=== PATIENT | male | born 1980 | race African-American/Black ===

== ENCOUNTER 2016-07-18 05:11 | Emergency (ER) | payer OTHER ==
[2016-07-18 05:17] VITALS: BP 126/80; BMI 19.2
[2016-07-18] MEDS ORDERED: TORADOL 60 MG VIAL IM ONE (05:49)
[2016-07-18] MEDS ORDERED: TORADOL 60 MG VIAL ONE (05:52)
--- NOTE | 2016-07-18 05:58 | DR.EXTPAIN ---
HPI - Time seen Time seen: 05:52 - PCP Primary Care Physician: NFD - Complaint/Symptoms Chief Complaint Doctor Comments: Patient complains of left leg pain for the past two months with problems lifting his left leg and turning it in certain direction. He denies any recent trauma. States he has been having left thigh, hip and knee pain. States he had biopsy x2 on the muscles of his left leg when he was a child up [place] trying t determine why his enzymes were so low. states he took Prednisone and metotrexate for a while. States he has been limping and having problems putting weight on his left leg for a while but he has just been taking it but the pain has gotten worst. States he does not have a local doctor and he has not seen a bone doctor in years. He smokes 1/4 pack cigarettes daily but denies alcohol use. States he has hypertension but is not taking any medicine because they did not give him any medicine after he left long-term. He denies any recent trauma. Chief Complaint:: LEFT LEG PAIN, DENIES INJURY OR TRAUMA. O/S 2 MONTHS BUT PAIN WORSE TONIGHT - Nurses notes reviewed Nurses Notes Review: Yes - Source History Provided: Patient - Mode of arrival Mode of Arrival: Ambulatory - Timing Onset of Chief Complaint: 07/17/16 - Context History of: None - Associated signs and symptoms Associated Signs and Symptoms: Pain PMH - PMH Past Medical History: Yes Past Medical History Comment: BLIND LEFT EYE Past Surgical History: Yes Surgical History: Ortho Surgery Past Surgical History Comment: LEFT CALF - Family History History of Family Medical Conditions: Yes Family Medical History: Hypertension - Social History Type of Tobacco Use: Cigarettes Alcohol Use: None Do you use any recreational Drugs:: No Lives With: Family Lives Where: Home - infectious screening Have you traveled outside the country in the last 6 months?: No Isolation: Standard ROS - Review of Systems Constitutional: No Symptoms Reported. negative: See HPI, Chills, Diaphoresis, Fever, Malaise, Weakness, Irritable, Fatigue, Loss of Appetite, Other Eyes: No Symptoms Reported ENTM: No Symptoms Reported Respiratoy: No Symptoms Reported Cardiovascular: No Symptoms Reported. negative: See HPI, Chest Pain, Edema, Palpitations, Syncope, Cyanosis, Skin Mottling, Other Gastrointestinal/Abdominal: No Symptoms Reported Genitourinary: No Symptoms Reported Neurological: No Symptoms Reported, Problems Walking (left leg and hip pain) Musculoskeletal: No Symptoms Reported, Left, Hip, Leg Integumentary: No Symptoms Reported Hematologic/Lymphatic: No Symptoms Reported. negative: See HPI, Anemia, Blood Clots, Easy Bleeding, Easy Bruising, Swollen Glands, Lymphadenopathy, Other Endocrine: No Symptoms Reported Psychiatric: No Symptoms Reported. negative: See HPI, Anxiety, Depression, Hallucinations, Excessive crying, Suicidal, Other PE - Vital Signs Vitals: Temperature 98.2 F Pulse Rate 62 Respiratory Rate 16 Blood Pressure [Right Arm] 172/92 Blood Pressure [Left Arm] 130/86 Blood Pressure 126/80 O2 Sat by Pulse Oximetry 100 - General Limitations: No Limitations General Appearance: Alert, In No Apparent Distress, In Distress (moderate) - Head Head Exam: Normal Inspection, Atraumatic, Normocephalic - Eyes Eye exam: Normal Appearance, PERRL, EOMI. negative: Scleral Icterus, Conjunctival Injection, Nystagmus, Miosis, Mydrasis, Periorbital Swelling, Periorbital Tenderness, Other - ENT ENT Exam: Normal Exam, Normal Oropharynx, Normal External Ear Exam, Mucous Membranes Moist, TM's Normal Bilaterally - Neck Neck Exam: Normal Inspection, Full ROM, Trachea Midline - Chest Chest Inspection: Normal Inspection, Symmetric Chest Wall Rise - Respiratory Respiratory Exam: Normal Lung Sounds Bilat Respiratory Exam: Bilateral Clear to Auscultation - Cardiovascular Cardiovascular Exam: Regular Rate, Normal Rhythm, Normal Heart Sounds - Abdominal Exam Abdominal Exam: Normal Inspection, Normal Bowel Sounds, Soft. negative: Distention, Tenderness, Guarding, Rebound, Rigidity, Dimnished Bowel Sounds, Hyperactive Bowel Sounds, Hypoactive Bowel Sounds, Organomegaly, Trauma, Incision, Ascites, Mass, Bruit, Pulsatile Mass, Hernia, Other Abdominal Tenderness: negative: RUQ, RLQ, LUQ, LLQ, Epigastrium, Suprapubic, Diffuse, Mild, Moderate, Severe, Other - Extremities Extremities Exam: Normal Inspection, Full ROM, Tenderness (left hip tender on palpation), Normal Capillary Refill (left lower leg with healed surgical scar; muscle deficit lower leg and calf muscle; well healed). negative: Edema, Joint Swelling, Calf Tenderness, Other - Upper Extremities Shoulder Exam: Normal Inspection, Full ROM Arm Exam: Normal Inspection, Full ROM. negative: Tenderness, Swelling, Abrasion , Laceration, Ecchymosis, Deformity, Crepitus, Erythema, Other Elbow Exam: Normal Inspection, Full ROM. negative: Tenderness, Swelling, Abrasion, Laceration, Ecchymosis, Deformity, Crepitus, Dislocation, Erythema, Effusion, Pain w/ pronation, Pain w/ Spuination, Tenderness over Radial Head, Other Forearm Exam: Normal Inspection, Full ROM Hand Exam: Normal Inspection, Full ROM Neuromotor Exam: Normal Exam. negative: Wrist Extension, Thumb Opposition, Thumb IP Flexion, Thumb Adduction, Fingers 2-5 Abduction, Other Neurosensory Exam: Normal Exam Hand Tendon Exam: negative: Flexor Digitorium Profundus (Location), Flexor Digitorium Superficialis (Location), Extensor Tendon (Location), Other Upper Ext. Vascular Exam: Capillary Refill - Lower Extremities Hip/Pelvis Exam: Normal Inspection, Full ROM, Tenderness (left hip tender on palpation). negative: Swelling, Abrasion, Laceration, Ecchymosis, Deformity, Crepitus, Dislocation, Erythema, External Rotation, Internal Rotation, Shortening, Pelvis Stable, Other Upper Leg Exam: Normal Inspection, Full ROM Knee Exam: Normal Inspection, Full ROM Lower Leg Exam: Normal Inspection, Full ROM, Tenderness (left popliteal with tendon tightening; no swelling or erythema) Ankle Exam: Normal Inspection, Full ROM Foot/Toe Exam: Normal Inspection, Full ROM Neurovascular/Tendon Exam: Normal Capillary Refill Gait Exam: Antalgic - Back Back Exam: Normal Inspection, Full ROM. negative: Tenderness, (R) CVA Tenderness, (L) CVA Tenderness, Muscle Spasm, Paraspinal Tenderness, Vertebral Tenderness, Rashes, (R) Sciatic Notch Tenderness, (L) Sciatic Notch Tendern, (R ) Straight Leg Raise, (L) Straight Leg Raise, Other - Neurological Neurological Exam: Alert, Oriented X3, CN II-XII Intact, Reflexes Normal. negative: Normal Gait (gait with left leg limp) - Psychiatric Psychiatric Exam: Normal Affect, Normal Mood - Skin Skin Exam: Warm, Dry, Intact, Normal Color Type of Lesion: negative: Rash, Abscess, Laceration, Foreign Body, Bite/Sting, Abrasion, Other Distribution: negative: Generalized, Involves Palms/Soles, Head, Face, Neck, Thorax, Chest, Back, Abdomen, Genitals, LUE, LLE, RUE, RLE, Other Description: negative: Size, Tenderness, Erythematous, Swelling, Macular, Papular, Vesicular, Blisters, Cofluent, Bullous, Petechial, Purpuric, Urticarial , Crusting, Discharge, Fluctuant, Indurated, Other ROR - Labs Reviewed Laboratory Results Reviewed?: Yes (All labs and x-ray results reviewed and discussed with patient.) Laboratory: D-Dimer 452 ng/mL (0-400) H* 07/18/16 06:00 - XRAY XRAY Interpreted by: Radiologist (Pelvis x-ray: Avascular necrosis right femoral head secondary osteoarthritis right hip) XRAY Findings: Left femur: Large soft tissue calcification throughout thighs soft tissue - Diagnosis Discharge Problem: Left hip pain, Avascular necrosis of bone of right hip, soft tissue calcification thighs Osteoarthritis of right hip Qualifiers: Osteoarthritis type: primary Qualified Code(s): M16.11 - Unilateral primary osteoarthritis, right hip - Discharge Plan Disposition: HOME, SELF-CARE Condition: Stable Prescriptions: Acetaminophen/Codeine Tab [TYLENOL w/CODEINE #3 (300 MG/30 MG) *] 1 tab PO Q4- 6H PRN #28 tab PRN Reason: Pain Meloxicam [MOBIC 15 MG *] 15 mg PO DAILY #30 tab Methylprednisolone Dosepak 4Mg [MEDROL DOSEPAK (4 mg tab x 21)] 1 tank PO ONCE # 1 tank - Follow ups/Referrals Follow ups/Referrals: NFD,None [Primary Care Provider] - 3 days KIANA RAE [CONSULTING PHYSICIAN] - 3 days CLAUDIA WONG [STAFF PHYSICIAN] - 3 days - Instructions Instructions: Avascular Necrosis, Hip Pain, Osteoarthritis, Joint Pain, Easy-to -Read, Myositis Ossificans-Sports[facility]
[2016-07-18] MEDS ORDERED: FLEXERIL TAB 10 MG PO STA (06:03)
[2016-07-18] MEDS ORDERED: PREDNISONE TAB 20 MG PO ONE ×2 (06:03→06:23)
[2016-07-18] MEDS ORDERED: FLEXERIL TAB 10 MG ONE (06:23)
--- NOTE | 2016-07-18 06:43 | RAD ---
EXAM: Pelvis X-ray Exam INDICATION: Pelvic Pain COMPARISION: No Prior TECHNIQUE: AP view of the pelvis, single view FINDINGS: There is avascular necrosis of the right femoral head with collapse and flattening of the superior a spect of the femoral head. Secondary osteoarthritis is present. The left hip appears unremarkable. N o acute fracture or dislocation. IMPRESSION: There is avascular necrosis of the right femoral head. Secondary osteoarthritis is present in the ri ght hip. Reported By:
--- NOTE | 2016-07-18 06:45 | RAD ---
EXAM: Left femur x-ray INDICATION: Leg pain COMPARISION: No priors for comparison TECHNIQUE: AP, lateral, and oblique, three views FINDINGS: Large soft tissue calcifications are seen throughout the thigh soft tissues. No acute fracture or di slocation. Joint spaces are preserved. IMPRESSION: Large soft tissue calcifications are seen throughout the thighs soft tissues. Findings may be second vishnu to dermatomyositis, tumoral calcinosis, myositis ossificans, or metabolic disorder. Reported By:
== END 2016-07-18 08:38 | disposition home or self-care (01) ==
LOC: ER 05:11
DX: M25.552 Pain in left hip (principal); M87.859 Other osteonecrosis, unspecified femur; M79.89 Other specified soft tissue disorders; M16.11 Unilateral primary osteoarthritis, right hip
CPT/HCPCS: 36415; 72170; 73552; 85378; 96372; 99283; J1885; J7506

== ENCOUNTER → 2016-09-08 | Outpatient (CLI) | payer OTHER ==
--- NOTE | 2016-09-08 10:47 | MRI ---
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 Comparison: Left femur radiograph July 18, 2016 Findings: There is osteonecrosis of the bilateral femoral heads. There is moderate flattening of the right superior femoral head as well as mild articular surface irregularity of the superior left fem oral head, compatible with subchondral collapse, greater on the right. There is mild secondary degen erative arthrosis of the right greater than left hips with associated superior joint space narrowing , small femoral head marginal osteophyte formation and moderate, likely reactive bilateral effusions . No discrete paralabral cysts are identified. The remaining visualized marrow signal appears normal. No acute fracture, malalignment or suspicious osseous lesion is seen. The SI joints and pubic symphysis appear well maintained. The imaged lower lumbar spine is unremarkable. There is focal hypointense signal within the left rectus femoris muscle, corresponding to soft tissu e calcification seen on the prior radiograph. The remaining visualized myotendinous structures about the bilateral hips and pelvis are unremarkable. The imaged contents of the lower abdomen and pelvis demonstrate no unexpected findings. Shotty bilateral inguinal lymph nodes are present, none patholo gically enlarged. Impression: 1. Osteonecrosis of the bilateral femoral heads with evidence of bilateral subchondral collapse, gre ater on the right. 2. Mild secondary degenerative arthrosis of the bilateral hips, greater on the right with moderate, likely reactive joint effusions. 3. Soft tissue calcification within the left rectus femoris muscle. Differentials again include hete rotopic ossification, tumoral calcinosis, dermatomyositis or metabolic disorder. Reported By:
--- NOTE | 2016-09-08 11:14 | MRI ---
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 Comparison: Pelvis radiograph July 18, 2016 Findings: There is osteonecrosis of the bilateral femoral heads. There is moderate flattening of the right superior femoral head as well as mild articular surface irregularity of the superior left femoral head, compatible with subchondral collapse, greater on the right. There is mild secondary degenerative arthrosis of the right greater than left hips with associated superior joint space narrowing, small femoral head marginal osteophyte formation and moderate, likely reactive bilateral effusions. No discrete paralabral cysts are identified. The remaining visualized marrow signal appears normal. No acute fracture, malalignment or suspicious osseous lesion is seen. The SI joints and pubic symphysis appear well maintained. The imaged lower lumbar spine is unremarkable. There are small focal areas of hypointense signal within the extensor and flexor compartments of the left thigh, corresponding to soft tissue calcifications seen on the prior radiograph. The remaining visualized myotendinous structures about the bilateral hips and pelvis are unremarkable. The imaged contents of the lower abdomen and pelvis demonstrate no unexpected findings. Shotty bilat eral inguinal lymph nodes are present, none pathologically enlarged. Impression: 1. Osteonecrosis of the bilateral femoral heads with evidence of bilateral subchondral collapse, greater on the right. 2. Mild secondary degenerative arthrosis of the bilateral hips, greater on the right with moderate, likely reactive joint effusions. 3. Soft tissue calcifications within the left thigh. Differentials again include heterotopic ossification, tumoral calcinosis, dermatomyositis or metabolic disorder. Reported By:
== END | disposition home or self-care (01) | DRG 554 ==
LOC: RAD 09:19
PROVIDERS: ATTEND Specialist
DX: M87.051 Idiopathic aseptic necrosis of right femur (principal); M87.052 Idiopathic aseptic necrosis of left femur
CPT/HCPCS: 73721

== ENCOUNTER → 2016-12-24 | Outpatient (CLI) | payer OTHER ==
[2016-12-24 14:50] LABS: BILIRUBIN,URINE NEGATIVE (NEGATIVE); BLOOD/HEMOGLOBIN,URINE NEGATIVE (NEGATIVE); GLUCOSE, URINE NEGATIVE (NEGATIVE); KETONES,URINE NEGATIVE (NEGATIVE); LEUKOCYTE ESTERASE ,URINE NEGATIVE (NEGATIVE); NITRITES,URINE NEGATIVE (NEGATIVE); PROTEIN,URINE NEGATIVE (NEGATIVE); UROBILINOGEN,URINE NORMAL (NORMAL)
[2016-12-24 14:56] LABS: BASOPHILS % (AUTO) 0.9 % (0.2-1.0); EOSINOPHILS # (AUTO) 0.2 x10^3/uL (0.0-0.2); HEMATOCRIT 41.2 % (42.0-54.0); HEMOGLOBIN 13.9 g/dL (13.5-18.0); LYMPHOCYTES # (AUTO) 2.3 X10^3/uL (1.3-2.9); MEAN CORPUSCULAR HEMOGLOBIN 29.5 pg (27.0-34.0); MEAN CORPUSCULAR HGB CONC 33.9 g/dL (33.0-35.0); MEAN CORPUSCULAR VOLUME 86.9 fL (80.0-100.0); MEAN PLATELET VOLUME 9.6 fL (7.4-11.0); MONOCYTES # (AUTO) 0.4 x10^3/uL (0.3-0.8); MONOCYTES % (AUTO) 8.9 % (0.0-13.0); NEUTROPHILS # (AUTO) 1.6 x10^3/uL (2.2-4.8); NEUTROPHILS % (AUTO) 35.2 % (42.0-75.0); PLATELET COUNT 203 X10^3/uL (150.0-450.0); RED BLOOD COUNT 4.74 X10^6/uL (4.7-6.0); RED CELL DISTRIBUTION WIDTH 16.5 % (11.6-16.5); WHITE BLOOD COUNT 4.6 X10^3/uL (3.6-10.0)
[2016-12-24 14:57] LABS: ALANINE AMINOTRANSFERASE 27 Units/L (12-78); ALBUMIN 3.8 g/dL (3.4-5.0); ALKALINE PHOSPHATASE 111 Units/L (46-116); ASPARTATE AMINO TRANSFERASE 30 Units/L (15-37); BLOOD UREA NITROGEN 14 mg/dL (7-18); CALCIUM 9.4 mg/dL (8.5-10.1); CARBON DIOXIDE 31.9 mmol/L (21-32); CHLORIDE 104 mmol/L (98-107); CREATININE 0.94 mg/dL (0.70-1.30); SODIUM 142 mmol/L (136-145); TOTAL PROTEIN 8.5 g/dL (6.4-8.2); eGFR BLACK RACES > 60 (>60); eGFR NON BLACK RACES > 60 (>60)
[2016-12-24 15:02] LABS: APPEARANCE,URINE CLEAR (CLEAR); BACTERIA,URINE NEGATIVE /HPF (NEGATIVE); COLOR,URINE YELLOW (YELLOW); RBC,URINE NONE SEEN /HPF (NEGATIVE); SQUAMOUS EPITHELIAL CELL,UR RARE /HPF (NEGATIVE)
--- NOTE | 2016-12-24 15:27 | RAD ---
Examination: Chest x-ray. Clinical History: Preop for NI. Technique: PA and lateral views of the chest were obtained. Comparison: None available. Findings: The cardiac and mediastinal contours are within normal limits. No pneumothorax or pleural effusion is noted. The lungs are mildly hyperinflated, suggestive of asthma. No confluent pulmonary opacity is noted. No acute osseous abnormality is noted. Impression: 1. The lungs are mildly hyperinflated, suggestive of asthma. No confluent pulmonary opacity is noted. Reported By:
--- NOTE | 2016-12-24 15:29 | RAD ---
Examination: AP pelvis History: Preop NI Findings: In the left hip, there is narrowing of the joint space with irregular heterogeneous scleros is of the femoral head. There is no flattening of the contour. No acute fracture is seen. In the right hip, there is a greater degree of joint narrowing with marked irregular flattening of th e sclerotic and heterogeneous femoral head. No acute traumatic injury is demonstrated. Impression: Bilateral hip osteoarthritis, right greater than left, with appearance of the femoral hea ds consistent with AVN. These findings have been documented on previous MR examination of 09/08/2016. Reported By:
[2016-12-24 15:48] LABS: ERYTHROCYTE SEDIMENTATION RATE 19 MM/HOUR (0-15)
== END ==
LOC: LAB 13:49
PROVIDERS: ATTEND Orthopaedic Surgery
DX: Z01.818 Encounter for other preprocedural examination (principal); Z01.810 Encounter for preprocedural cardiovascular examination; Z01.811 Encounter for preprocedural respiratory examination; Z79.899 Other long term (current) drug therapy; Z79.01 Long term (current) use of anticoagulants; Z11.8 Encounter for screening for other infectious and parasitic diseases; B95.61 Methicillin susceptible Staphylococcus aureus infection as the cause of diseases classified elsewhere; M87.051 Idiopathic aseptic necrosis of right femur; M87.052 Idiopathic aseptic necrosis of left femur; M16.0 Bilateral primary osteoarthritis of hip
CPT/HCPCS: 36415; 71020; 72170; 80053; 81001; 85025; 85610; 85652; 85730; 86140; 86850; 86900; 86901; 87640; 87641; 93005; 93010

== ENCOUNTER → 2017-01-01 | Outpatient (CLI) | payer OTHER | LOC: LAB 08:40 | PROVIDERS: ATTEND Orthopaedic Surgery | DX: Z01.818 Encounter for other preprocedural examination (principal); M87.071 Idiopathic aseptic necrosis of right ankle; M87.072 Idiopathic aseptic necrosis of left ankle | CPT/HCPCS: 36415; 86850; 86900; 86901 ==

== ENCOUNTER 2017-01-04 07:22 | Inpatient (IN) | payer OTHER ==
[2017-01-04] MEDS ORDERED: ANCEF VIAL 1 GM ONE (07:32)
[2017-01-04] MEDS ORDERED: D5 LR 1000 ML 1,000 ML IV ONE (07:32)
[2017-01-04] MEDS ORDERED: FENTANYL INJ 100 mcg ONE (07:38)
[2017-01-04 08:01] VITALS: BMI 19.2
[2017-01-04] MEDS ORDERED: FLUVIRIN IM ONE (08:01)
[2017-01-04] MEDS ORDERED: MARCAINE 0.25% INJ ONE (08:04)
[2017-01-04] MEDS ORDERED: NS IRRIGATION 1000 ML 1,000 ML with BACITRACIN VIAL 50,000 UNT IR ONE ×2 (09:09)
[2017-01-04] MEDS ORDERED: NS IRRIGATION 3000 ML 3,000 ML with BACITRACIN VIAL 50,000 UNT IR ONE ×4 (09:09)
[2017-01-04] MEDS: LR 1000 ML IV 1,000 ML IV ONE ×2 (09:36→10:02)
[2017-01-04 09:43] LABS: BILIRUBIN,URINE NEGATIVE (NEGATIVE); BLOOD/HEMOGLOBIN,URINE 1+ (NEGATIVE); GLUCOSE, URINE NEGATIVE (NEGATIVE); KETONES,URINE NEGATIVE (NEGATIVE); LEUKOCYTE ESTERASE ,URINE NEGATIVE (NEGATIVE); NITRITES,URINE NEGATIVE (NEGATIVE); PROTEIN,URINE 1+ (NEGATIVE); UROBILINOGEN,URINE NORMAL (NORMAL)
[2017-01-04 09:57] LABS: APPEARANCE,URINE CLEAR (CLEAR); COLOR,URINE YELLOW (YELLOW); RBC,URINE 0-3 /HPF (NEGATIVE)
[2017-01-04 09:58] LABS: BACTERIA,URINE NEGATIVE /HPF (NEGATIVE); SQUAMOUS EPITHELIAL CELL,UR FEW /HPF (NEGATIVE)
[2017-01-04] MEDS ORDERED: NS EPI PRN ×3 (10:18)
[2017-01-04] MEDS ORDERED: Q PUMP EPI PRN (10:18)
[2017-01-04] MEDS ORDERED: MARCAINE EPI PRN ×3 (10:18)
[2017-01-04] MEDS ORDERED: FENTANYL EPI PRN ×3 (10:18)
[2017-01-04] MEDS ORDERED: NEO-SYNEPHRINE INJ ONE (10:34)
[2017-01-04] MEDS ORDERED: ROBINUL ONE (10:34)
[2017-01-04] MEDS ORDERED: ZOFRAN INJ 4 MG VIAL ONE (10:34)
[2017-01-04] MEDS ORDERED: NEOSTIGMINE INJ ONE (10:34)
[2017-01-04] MEDS ORDERED: DIPRIVAN VIAL ONE (10:34)
[2017-01-04] MEDS ORDERED: SUPRANE IN ONE (10:34)
[2017-01-04] MEDS ORDERED: XYLOCAINE 2 % (PLAIN) ONE (10:34)
[2017-01-04] MEDS ORDERED: NORCURON INJ 10 MG VIAL ONE (10:34)
[2017-01-04] MEDS ORDERED: VERSED ONE (10:34)
[2017-01-04] MEDS ORDERED: MARCAINE 0.5% ONE (10:34)
[2017-01-04] MEDS ORDERED: QUELICIN (OR ANECTINE) ONE (10:34)
[2017-01-04] MEDS ORDERED: LR 1000 ML IV 1,000 ML IV ONE ×2 (10:56→12:02)
[2017-01-04] MEDS ORDERED: BACTROBAN OINT TOP ONE (11:34)
[2017-01-04] MEDS ORDERED: ZOFRAN INJ 4 MG VIAL IVP PRN ×2 (11:58→12:01)
[2017-01-04] MEDS ORDERED: DILAUDID INJ IVP PRN (12:01)
[2017-01-04] MEDS ORDERED: BENADRYL INJ 50 MG VIAL IVP PRN (12:01)
[2017-01-04] MEDS ORDERED: REGLAN INJ 10 MG VIAL IVP PRN (12:01)
[2017-01-04] MEDS ORDERED: PHENERGAN INJ 25 MG IVP PRN (12:01)
--- NOTE | 2017-01-04 12:27 | RAD ---
Examination: Left hip, two views History: Postop Comparison reference: 12/24/2016 Findings: Arthroplasty components are now present, without evidence for dislocation, periprosthetic f racture. The expected postsurgical soft tissue changes are noted. Impression: Interval performance left NI. Reported By:
[2017-01-04] MEDS ORDERED: NS 1000 ML 1,000 ML ONE (13:57)
[2017-01-04] MEDS ORDERED: NS 1000 ML 1,000 ML IV SCH (14:00)
[2017-01-04] MEDS: MORPHINE SULFATE PCA 30 MG IV PRN ×2 (14:50→23:20)
[2017-01-04] MEDS: PERCOCET TAB 5/325 MG PO PRN (22:42)
[2017-01-05] MEDS: PERCOCET TAB 5/325 MG PO PRN ×3 (05:50→21:44)
[2017-01-05 06:23] LABS: BLOOD UREA NITROGEN 7 mg/dL (7-18); CARBON DIOXIDE 26.2 mmol/L (21-32); CHLORIDE 99 mmol/L (98-107); COR NA(FOR HYPERGLY) 134 mmol/L (136-145); CREATININE 0.63 mg/dL (0.70-1.30); SODIUM 134 mmol/L (136-145); eGFR BLACK RACES > 60 (>60); eGFR NON BLACK RACES > 60 (>60)
[2017-01-05 06:35] LABS: BASOPHILS % (AUTO) 0.3 % (0.2-1.0); EOSINOPHILS % (AUTO) 0.2 % (0.9-2.9); HEMATOCRIT 31.4 % (42.0-54.0); HEMOGLOBIN 10.7 g/dL (13.5-18.0); LYMPHOCYTES # (AUTO) 1.3 X10^3/uL (1.3-2.9); MEAN CORPUSCULAR HEMOGLOBIN 29.4 pg (27.0-34.0); MEAN CORPUSCULAR HGB CONC 34.1 g/dL (33.0-35.0); MEAN CORPUSCULAR VOLUME 86.3 fL (80.0-100.0); MEAN PLATELET VOLUME 9.6 fL (7.4-11.0); MONOCYTES # (AUTO) 0.9 x10^3/uL (0.3-0.8); MONOCYTES % (AUTO) 8.9 % (0.0-13.0); NEUTROPHILS # (AUTO) 7.7 x10^3/uL (2.2-4.8); NEUTROPHILS % (AUTO) 77.6 % (42.0-75.0); PLATELET COUNT 132 X10^3/uL (150.0-450.0); RED BLOOD COUNT 3.63 X10^6/uL (4.7-6.0); RED CELL DISTRIBUTION WIDTH 15.2 % (11.6-16.5); WHITE BLOOD COUNT 9.9 X10^3/uL (3.6-10.0)
[2017-01-05] MEDS ORDERED: NORCO 10/325 TAB PO PRN (12:38)
[2017-01-05] MEDS: ANCEF VIAL 1 GM 1 GM in NS 50 ML IV + SPIKE MINIBAG* 50 ML IV SCH ×3 (15:11→22:16)
--- NOTE | 2017-01-05 16:07 | OR.GENERIC ---
Post-Op Note Generic - Post-Op Note Operative Report: PREOPERATIVE DIAGNOSIS: Left hip degenerative arthritis, AVN POSTOPERATIVE DIAGNOSIS: Left hip degenerative arthritis, AVN PROCEDURE PERFORMED: LEFT total hip arthroplasty ANESTHESIA: General. BLOOD LOSS: 300 cc. The patient was positioned with the left hip exposed on the pegboard. IMPLANT SPECIFICATION: [place] Accloade femur 3 ADM 52 mm acetabular shell cluster, 28 mm ceramic head, with 48 mm ADM insert GROSS INTRAOPERATIVE FINDINGS: Severe degenerative changes within the femoral head as well as the acetabulum. complete loss of articular cartilage. HISTORY: This is a 36-year-old male with a history of left hip degenerative osteoarthritis and AVN. Because of the increased amount of pain as well as severe effect on his activities of daily living and uncontrollable pain with narcotic medication, the patient has elected to undergo the above-named procedure. All risks as well complications were discussed with the patient including but not limited to infection, scar, dislocation, need for further surgery, risk of anesthesia, deep vein thrombosis, and implant failure. The patient understood all these risks and was willing to continue further on with the procedure. PROCEDURE:. Patient was brought to the operating room. Spinal epidural was done. he got appropriate antibiotic. Bess catheter was inserted. he was positioned with peg board in a right lateral position. An axillary roll was placed. All bony prominences were well padded. At this time, the left hip and left lower extremity was then prepped and draped in the usual sterile fashion for this procedure. At this time, a posterior approach was then performed. A curvilinear incision placed over the posterior half of trochanter was placed. Dissection carried down through the subcutaneous tissue to expose the TFL and the distal part of the incision. Incision made in the TFL and The G max fibers split along. Charnley retractor applied. Fat pad was elevated with the Ray- Sage exposing the short external rotators. Inferior and superior sutures with heavy sutures placed in the rotators and the capsule. The short rotators with capsule were taken down with cautery to expose the hip. The hip was dislocated with flexion adduction and internal rotation. An neck osteotomy was completed with an oscillating saw. The femoral head was then removed. The leg was flexed and abducted and rotated 90 to prepare the femur. A Mclaughlin retractor was used to retract the tensor fascia neeru and femoral elevator was used to elevate the femur for better exposure and at this time, we began working on the femur. A rongeur was used to lateralize over the greater trochanter. A Box osteotome was used to remove the cancellous portion of the femoral neck. A Charnley awl was then used to cannulate through the proximal femoral canal. A power reamer was then used to ream the lateral aspect of the greater trochanter in order to provide maximal lateralization and prevent varus implantation of our stem. At this time, we began broaching. We started with a size #0 and progressively worked up to a size #3 mm broach. A calcar reamer was then placed and the calcar was reamed smoothly.. The acetabulum was exposed after an anterior capsulotomy was done. Retractors were placed anteriorly posteriorly and inferiorly. A long-handle knife was used to cut through the remainder of the capsule and remove the glenoid labrum around the rim of the acetabulum. With better exposure of the acetabulum, we started reaming the acetabulum. We started with a size #40 and progressively reamed to a size #52. At the size #52 mm reamer, we obtained excellent bony bleeding with good remainder of bone stalk both anteriorly and posteriorly as well as superiorly within the acetabulum. A size 52 mm cup was then implanted with excellent approaches approximately 45 degrees of abduction and 10 to 15 degrees of anteversion dialed in. 3 screws were the placed within the superior table for better approaches securing the acetabular cup. At this time, a plastic liner was then inserted for protection. The ADM complement was assembled on the back table. The 28 mm zero neck length cobalt-chrome femoral head was then impacted in place and the Monge taper assured that this was well fixed . A standard neck as well as a 28 mm plastic head was then placed and a trial reduction was then performed. Once this was performed, the hip was taken to range of motion with external rotation, longitudinal traction as well as flexion and revealed good stability with no impingement or dislocation. At this time, we removed 2 mm broach and proceeded with implanting our polyethylene liner within the acetabulum. This was impacted and placed and checked to assure that it was well seated with no loosening. We copiously irrigated within the canal and then suctioned it dry. At this time, a size 3 porous proximal collared stem, a femoral component was then impacted in place Next, the hip was then reduced within the acetabulum and again we checked range of motion as well as ligamentous stability with gentle traction, external rotation, as well as hip flexion. We were satisfied with components as well as the alignment of the components. Copious irrigation was then used to irrigate the wound. #1 Ethibond was then used to approximate the hip capsule. #1 Ethibond in interrupted fashion was used to approximate the vastus lateralis as well as the gluteus medius attachment over the partial gluteus medius attachment which was resected off the greater trochanter. Next, a #1 Ethibond was then used to approximate the tensor fascia neeru with [id number] closure. A tight closure was performed. Since the patient did have a lot of subcutaneous fat, multiple #2-0 Vicryl sutures were then used to approximate the bed space and then #2-0 Vicryl for the subcutaneous skin. [place] were then used for skin closure. The patients hip was then cleansed. Sterile dressings consisting of Adaptic, 4 x 4, ABDs, and foam tape were then placed. After the dressing was applied, the patient was extubated safely and transferred to recovery in stable condition. Prognosis is good.
[2017-01-05] MEDS ORDERED: LOVENOX INJ 30 MG SYR SC SCH (21:00)
[2017-01-05] MEDS ORDERED: NS 50 ML IV 50 ML IV ONE (21:42)
[2017-01-05] MEDS ORDERED: ANCEF VIAL 1 GM ONE (21:43)
[2017-01-05] MEDS: BENADRYL CAP/TAB 25 MG PO PRN (23:52)
[2017-01-06] MEDS: PERCOCET TAB 5/325 MG PO PRN ×2 (03:49→09:22)
[2017-01-06] MEDS ORDERED: NS 50 ML IV 50 ML IV ONE (04:43)
[2017-01-06] MEDS ORDERED: ANCEF VIAL 1 GM ONE (04:44)
[2017-01-06 04:56] LABS: BASOPHILS # (AUTO) 0.1 X10^3/uL (0.0-0.1); BASOPHILS % (AUTO) 0.4 % (0.2-1.0); BLOOD UREA NITROGEN 8 mg/dL (7-18); CALCIUM 9.1 mg/dL (8.5-10.1); CARBON DIOXIDE 26.1 mmol/L (21-32); CHLORIDE 98 mmol/L (98-107); COR NA(FOR HYPERGLY) 134 mmol/L (136-145); EOSINOPHILS # (AUTO) 0.1 x10^3/uL (0.0-0.2); EOSINOPHILS % (AUTO) 0.7 % (0.9-2.9); HEMATOCRIT 30.8 % (42.0-54.0); HEMOGLOBIN 10.4 g/dL (13.5-18.0); LYMPHOCYTES # (AUTO) 1.2 X10^3/uL (1.3-2.9); MEAN CORPUSCULAR HEMOGLOBIN 29.1 pg (27.0-34.0); MEAN CORPUSCULAR HGB CONC 33.7 g/dL (33.0-35.0); MEAN CORPUSCULAR VOLUME 86.3 fL (80.0-100.0); MEAN PLATELET VOLUME 11.1 fL (7.4-11.0); MONOCYTES # (AUTO) 1.3 x10^3/uL (0.3-0.8); MONOCYTES % (AUTO) 8.7 % (0.0-13.0); NEUTROPHILS # (AUTO) 12.4 x10^3/uL (2.2-4.8); NEUTROPHILS % (AUTO) 82.2 % (42.0-75.0); PLATELET COUNT 148 X10^3/uL (150.0-450.0); RED BLOOD COUNT 3.56 X10^6/uL (4.7-6.0); RED CELL DISTRIBUTION WIDTH 15.1 % (11.6-16.5); SODIUM 133 mmol/L (136-145); WHITE BLOOD COUNT 15.1 X10^3/uL (3.6-10.0); eGFR BLACK RACES > 60 (>60); eGFR NON BLACK RACES > 60 (>60)
[2017-01-06] MEDS: ANCEF VIAL 1 GM 1 GM in NS 50 ML IV + SPIKE MINIBAG* 50 ML IV SCH ×2 (05:19→13:27)
--- NOTE | 2017-01-06 09:09 | PCM.PROG ---
Progress Note - Progress Note for Day of Date: 01/05/17 - Subjective Subjective: patient is a 36-year-old black male who is status post left total hip replacement per Dr. Anderson. 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 Patient is tolerating pain well. We'll continue with postoperative plan of care including physical therapy pain control - Past Medical Family Social History Past Med/Fam/Surg Hx: No changes since H&P Allergies: Allergies MS No Known Drug Allergy [No Known Drug Allergy] Allergy (Verified 07/18/16 05: 17) - Review of Systems ROS: No change since H&P - Vital Signs and I&O's Vital Signs: Temperature 99.0 F Pulse Rate [Left Radial] 100 Pulse Rate 108 Respiratory Rate 20 Blood Pressure [Right Arm] 127/74 Blood Pressure [Left Arm] 136/77 Blood Pressure 142/86 O2 Sat by Pulse Oximetry 99 Intake and Output: Intake & Output 01/03/17 01/04/17 01/05/17 01/06/17 11:59 11:59 11:59 11:59 Intake Total 1510 1590 Output Total [address] [place], [place] [phone] - Physical Exam Oriented: Normal Eyes: Normal Ear: Normal Nose: Normal Throat: Normal Respiratory: Normal Cardiovascular: Normal : Normal Auscultation: Bowel Sounds: Normal Palpation: Normal Tenderness: Normal Musculoskeletal: Left, Hip, Thigh Psychiatric: Normal Mood Description: Calm Speech Pattern: Clear, Appropriate - Laboratory and Diagnostics Result Diagrams: 01/06/17 04:00 01/06/17 04:00 Labs: Laboratory WBC 15.1 X10^3/uL (3.6-10.0) H 01/06/17 04:00 RBC 3.56 X10^6/uL (4.7-6.0) L 01/06/17 04:00 Hgb 10.4 g/dL (13.5-18.0) L 01/06/17 04:00 Hct 30.8 % (42.0-54.0) L 01/06/17 04:00 MCV 86.3 fL (80.0-100.0) 01/06/17 04:00 MCH 29.1 pg (27.0-34.0) 01/06/17 04:00 MCHC 33.7 g/dL (33.0-35.0) 01/06/17 04:00 RDW 15.1 % (11.6-16.5) 01/06/17 04:00 Plt Count 148 X10^3/uL (150.0-450.0) L 01/06/17 04:00 MPV 11.1 fL (7.4-11.0) H 01/06/17 04:00 Neut % 82.2 % (42.0-75.0) H 01/06/17 04:00 Lymph % 8.0 % (21.0-51.0) L 01/06/17 04:00 [place] % 8.7 % (0.0-13.0) 01/06/17 04:00 Eos % 0.7 % (0.9-2.9) L 01/06/17 04:00 Baso % 0.4 % (0.2-1.0) 01/06/17 04:00 Neut # 12.4 x10^3/uL (2.2-4.8) H 01/06/17 04:00 Lymph # 1.2 X10^3/uL (1.3-2.9) L 01/06/17 04:00 [place] # 1.3 x10^3/uL (0.3-0.8) H 01/06/17 04:00 Eos # 0.1 x10^3/uL (0.0-0.2) 01/06/17 04:00 Baso # 0.1 X10^3/uL (0.0-0.1) 01/06/17 04:00 Absolute Nucleated RBC 0.0 /100WBC 01/06/17 04:00 Sodium 133 mmol/L (136-145) L 01/06/17 04:00 Corrected Sodium 134 mmol/L (136-145) L 01/06/17 04:00 Potassium 3.7 mmol/L (3.5-5.1) 01/06/17 04:00 Chloride 98 mmol/L (98-107) 01/06/17 04:00 Carbon Dioxide 26.1 mmol/L (21-32) 01/06/17 04:00 BUN 8 mg/dL (7-18) 01/06/17 04:00 Creatinine 0.70 mg/dL (0.70-1.30) 01/06/17 04:00 Est GFR (MDRD) Af Amer > 60 (>60) 01/06/17 04:00 Est GFR (MDRD) Non-Af > 60 (>60) 01/06/17 04:00 Glucose 123 mg/dL (65-99) H 01/06/17 04:00 Calcium 9.1 mg/dL (8.5-10.1) 01/06/17 04:00 Specimen Type Catherized urine 01/04/17 08:42 Urine Color Yellow (YELLOW) 01/04/17 08:42 Urine Appearance Clear (CLEAR) 01/04/17 08:42 Urine pH 5.0 (5.0 - 8.0) 01/04/17 08:42 Ur Specific [place] 1.025 (1.000-1.030) 01/04/17 08:42 Urine Protein 1+ (NEGATIVE) 01/04/17 08:42 Urine Glucose (UA) Negative (NEGATIVE) 01/04/17 08:42 Urine Ketones Negative (NEGATIVE) 01/04/17 08:42 Urine Occult Blood 1+ (NEGATIVE) 01/04/17 08:42 Urine Nitrite Negative (NEGATIVE) 01/04/17 08:42 Urine Bilirubin Negative (NEGATIVE) 01/04/17 08:42 Urine Urobilinogen Normal (NORMAL) 01/04/17 08:42 Ur Leukocyte Esterase Negative (NEGATIVE) 01/04/17 08:42 Urine RBC 0-3 /HPF (NEGATIVE) 01/04/17 08:42 Urine WBC 0-3 /HPF (NEGATIVE) 01/04/17 08:42 Ur Squamous Epith Cells Few /HPF (NEGATIVE) 01/04/17 08:42 Urine Bacteria Negative /HPF (NEGATIVE) 01/04/17 08:42 Ur Culture Indicated? No/not indicated 01/04/17 08:42 - Plan (1) Status post hip replacement Status: Acute Plan: continue postoperative plan of care, physical therapy, wound care, pain control. Monitor H&H, resume home medications (2) Avascular necrosis of bone of right hip Status: Acute (3) Osteoarthritis of right hip Status: Acute Qualifiers: Osteoarthritis type: primary Qualified Code(s): M16.11 - Unilateral primary osteoarthritis, right hip
[2017-01-06] MEDS ORDERED: COLACE CAP 100 MG PO PRN (09:37)
[2017-01-06] MEDS ORDERED: MILK OF MAGNESIA PO PRN (09:37)
[2017-01-06] MEDS ORDERED: PERCOCET TAB 5/325 MG PO PRN (12:30)
[2017-01-06] MEDS: BENADRYL CAP/TAB 25 MG PO PRN (15:12)
[2017-01-06 16:35] VITALS: BP 118/64
[2017-01-06] MEDS ORDERED: FLUVIRIN IM ONE (16:40)
== END 2017-01-06 16:30 | disposition home or self-care (01) | DRG 470 ==
LOC: MED/SURG 07:22
PROVIDERS: ADMIT Orthopaedic Surgery; ATTEND Internal Medicine
PROC: 0SRB02A Replacement of Left Hip Joint with Metal on Polyethylene Synthetic Substitute, Uncemented, Open Approach (ICD-10-PCS; principal; 2017-01-02)
PROC: 3E0234Z Introduction of Serum, Toxoid and Vaccine into Muscle, Percutaneous Approach (ICD-10-PCS; 2017-01-06)
DX: M87.052 Idiopathic aseptic necrosis of left femur (principal); M16.12 Unilateral primary osteoarthritis, left hip; R26.89 Other abnormalities of gait and mobility
CPT/HCPCS: 36415; 62326; 73501; 80048; 81001; 85025; 94640; 94762; 97535; A4216; A4222; S0020; J0330; J0690; J1170; J1650; J2001; J2250; J2271; J2370; J2405; J2710; J3010; J3490; J7120

== ENCOUNTER 2017-01-07 22:38 | Emergency (ER) | payer OTHER ==
[2017-01-07 22:51] VITALS: BMI 17.7
[2017-01-07] MEDS ORDERED: NUBAIN INJ 200 MG VIAL MULTIDOSE IVP ONE (23:37)
[2017-01-07] MEDS ORDERED: NUBAIN INJ 10 ONE (23:39)
--- NOTE | 2017-01-07 23:39 | DR.GENAD ---
HPI - PCP Primary Care Physician: CLIFFORD BALDWIN Comment HPI Comment: A 36 y/o male presenting with complaint of increase Left hip pain. He is s/p ORIF of the left hip x 3 days ago. He was sent home on 01/06/17. He states that he has increased his PT activity earlier today and that may have caused him more pain. He has had no relief with use of his Percocet 10/325 mg. He states there was fever and chills. - Complaint/Symptoms Chief Complaint:: LEFT HIP PAIN S/P LEFT HIP REPLACEMENT 4 DAYS AGO, FEVER Self Treatment fo Chief Complaint: PAIN MEDS - Nurses notes reviewed Nurses Notes Review: Yes - Source History Provided: Patient - Mode of Arrival Mode of Arrival: Wheelchair - Timing Onset of Chief Complaint: 01/07/17 Came on: Suddenly PMH - PMH Past Medical History: No Past Surgical History: Yes Surgical History: Ortho Surgery Past Surgical History Comment: LEFT HIP ARTHROPLASTY. - Family History History of Family Medical Conditions: Yes Family Medical History: Hypertension - Social History Does patient currently use any type of tobacco product: Yes Have you used tobacco products in the last 12 months: Yes Type of Tobacco Use: Cigarettes Does any household member use tobacco: No Alcohol Use: None Do you use any recreational Drugs:: No Lives With: Mom Lives Where: Home - infectious screening In the last 2 months have you had wt loss of >10#?: NO Have you had fever, night sweats or hemotysis?: No Have you traveled outside the country in the last 6 months?: No Isolation: Standard ROS - Review of Systems Constitutional: Fever Eyes: No Symptoms Reported ENTM: No Symptoms Reported Respiratoy: No Symptoms Reported Cardiovascular: No Symptoms Reported Gastrointestinal/Abdominal: No Symptoms Reported Genitourinary: No Symptoms Reported Neurological: No Symptoms Reported Musculoskeletal: Joint Pain, Left, Hip Integumentary: Other (wound drainage from surgical site) Hematologic/Lymphatic: No Symptoms Reported Endocrine: No Symptoms Reported Psychiatric: No Symptoms Reported All Other Systems: Reviewed and Negative PE - Vital Signs Vitals: Temperature 99.1 F Pulse Rate 100 Respiratory Rate 16 Blood Pressure [Right Arm] 127/74 Blood Pressure [Left Arm] 118/64 Blood Pressure 119/81 O2 Sat by Pulse Oximetry 98 - General Limitations: No Limitations General Appearance: Alert, In Distress. negative: In No Apparent Distress - Head Head Exam: Normal Inspection - Eyes Eye exam: Normal Appearance, PERRL, EOMI - ENT ENT Exam: Normal Exam - Neck Neck Exam: Normal Inspection, Full ROM, Trachea Midline - Chest Chest Inspection: Normal Inspection, Symmetric Chest Wall Rise - Respiratory Respiratory Exam: Normal Lung Sounds Bilat - Cardiovascular Cardiovascular Exam: Regular Rate, Normal Rhythm - Abdominal Exam Abdominal Exam: Normal Inspection, Normal Bowel Sounds, Soft - Extremities Extremities Exam: Normal Inspection, Tenderness (over surgical site at lt. hip area) - Back Back Exam: Normal Inspection - Neurologic Neurological Exam: Alert, Oriented X3, CN II-XII Intact - Psychiatric Psychiatric Exam: Normal Affect, Normal Mood - Skin Skin Exam: Warm, Dry, Intact, Normal Color, Other (There is a surgical dressing over the lt. hip this was peeled back. Surgical anand are in place, there is no wound dehiscence, There is a couple of dry blood spots on the dressing and 1 area of dry light yellow spot. There is no wound drainage noted. ) ROR - Labs Reviewed Result Diagrams: 01/07/17 23:45 01/07/17 23:45 Laboratory: WBC 9.1 X10^3/uL (3.6-10.0) 01/07/17 23:45 RBC 3.32 X10^6/uL (4.7-6.0) L 01/07/17 23:45 Hgb 9.8 g/dL (13.5-18.0) L 01/07/17 23:45 Hct 28.9 % (42.0-54.0) L 01/07/17 23:45 MCV 87.0 fL (80.0-100.0) 01/07/17 23:45 MCH 29.6 pg (27.0-34.0) 01/07/17 23:45 MCHC 34.0 g/dL (33.0-35.0) 01/07/17 23:45 RDW 15.3 % (11.6-16.5) 01/07/17 23:45 Plt Count 193 X10^3/uL (150.0-450.0) 01/07/17 23:45 MPV 9.5 fL (7.4-11.0) 01/07/17 23:45 Neut % 70.8 % (42.0-75.0) 01/07/17 23:45 Lymph % 18.0 % (21.0-51.0) L 01/07/17 23:45 [place] % 8.7 % (0.0-13.0) 01/07/17 23:45 Eos % 2.3 % (0.9-2.9) 01/07/17 23:45 Baso % 0.2 % (0.2-1.0) 01/07/17 23:45 Neut # 6.5 x10^3/uL (2.2-4.8) H 01/07/17 23:45 Lymph # 1.6 X10^3/uL (1.3-2.9) 01/07/17 23:45 [place] # 0.8 x10^3/uL (0.3-0.8) 01/07/17 23:45 Eos # 0.2 x10^3/uL (0.0-0.2) 01/07/17 23:45 Baso # 0.0 X10^3/uL (0.0-0.1) 01/07/17 23:45 Absolute Nucleated RBC 0.0 /100WBC 01/07/17 23:45 Sodium 135 mmol/L (136-145) L 01/07/17 23:45 Corrected Sodium TNP 01/07/17 23:45 Potassium 3.6 mmol/L (3.5-5.1) 01/07/17 23:45 Chloride 99 mmol/L (98-107) 01/07/17 23:45 Carbon Dioxide 26.0 mmol/L (21-32) 01/07/17 23:45 BUN 9 mg/dL (7-18) 01/07/17 23:45 Creatinine 0.73 mg/dL (0.70-1.30) 01/07/17 23:45 Est GFR (MDRD) Af Amer > 60 (>60) 01/07/17 23:45 Est GFR (MDRD) Non-Af > 60 (>60) 01/07/17 23:45 Glucose 107 mg/dL (65-99) H 01/07/17 23:45 Calcium 8.9 mg/dL (8.5-10.1) 01/07/17 23:45 Corrected Calcium 9.7 mg/dL (8.5-10.1) 01/07/17 23:45 Total Bilirubin 0.30 mg/dL (0.2-1.0) 01/07/17 23:45 AST 68 Units/L (15-37) H 01/07/17 23:45 ALT 25 Units/L (12-78) 01/07/17 23:45 Alkaline Phosphatase 78 Units/L (46-116) 01/07/17 23:45 Total Protein 7.9 g/dL (6.4-8.2) 01/07/17 23:45 Albumin 3.0 g/dL (3.4-5.0) L 01/07/17 23:45 Globulin 4.9 g/dL (2.5-4.5) H 01/07/17 23:45 Albumin/Globulin Ratio 0.6 Ratio (1.1-2.1) L 01/07/17 23:45 - Diagnosis Discharge Problem: Left hip pain - Discharge Plan Condition: Stable - Follow ups/Referrals Follow ups/Referrals: NFD,None [Primary Care Provider] - 3 days - Instructions
[2017-01-07] MEDS ORDERED: ROCEPHIN VIAL 1 GM 1 GM in NS 50 ML IV + SPIKE MINIBAG* 50 ML IV ONE (23:49)
[2017-01-07] MEDS ORDERED: ROCEPHIN 1 GM IV PREMIX 1 GM/50 ML IV.SOLN. IV ONE (23:54)
[2017-01-07 23:56] LABS: BASOPHILS % (AUTO) 0.2 % (0.2-1.0); EOSINOPHILS # (AUTO) 0.2 x10^3/uL (0.0-0.2); EOSINOPHILS % (AUTO) 2.3 % (0.9-2.9); HEMATOCRIT 28.9 % (42.0-54.0); HEMOGLOBIN 9.8 g/dL (13.5-18.0); LYMPHOCYTES # (AUTO) 1.6 X10^3/uL (1.3-2.9); MEAN CORPUSCULAR HEMOGLOBIN 29.6 pg (27.0-34.0); MEAN PLATELET VOLUME 9.5 fL (7.4-11.0); MONOCYTES # (AUTO) 0.8 x10^3/uL (0.3-0.8); MONOCYTES % (AUTO) 8.7 % (0.0-13.0); NEUTROPHILS # (AUTO) 6.5 x10^3/uL (2.2-4.8); NEUTROPHILS % (AUTO) 70.8 % (42.0-75.0); PLATELET COUNT 193 X10^3/uL (150.0-450.0); RED BLOOD COUNT 3.32 X10^6/uL (4.7-6.0); RED CELL DISTRIBUTION WIDTH 15.3 % (11.6-16.5); WHITE BLOOD COUNT 9.1 X10^3/uL (3.6-10.0)
[2017-01-08 00:06] LABS: ALANINE AMINOTRANSFERASE 25 Units/L (12-78); ALKALINE PHOSPHATASE 78 Units/L (46-116); ASPARTATE AMINO TRANSFERASE 68 Units/L (15-37); BLOOD UREA NITROGEN 9 mg/dL (7-18); CALCIUM 8.9 mg/dL (8.5-10.1); CHLORIDE 99 mmol/L (98-107); COR CA(FOR HYPOALB) 9.7 mg/dL (8.5-10.1); CREATININE 0.73 mg/dL (0.70-1.30); SODIUM 135 mmol/L (136-145); TOTAL PROTEIN 7.9 g/dL (6.4-8.2); eGFR BLACK RACES > 60 (>60); eGFR NON BLACK RACES > 60 (>60)
[2017-01-08 00:16] LABS: BILIRUBIN,URINE NEGATIVE (NEGATIVE); BLOOD/HEMOGLOBIN,URINE 4+ (NEGATIVE); GLUCOSE, URINE NEGATIVE (NEGATIVE); KETONES,URINE NEGATIVE (NEGATIVE); LEUKOCYTE ESTERASE ,URINE NEGATIVE (NEGATIVE); NITRITES,URINE NEGATIVE (NEGATIVE); PROTEIN,URINE 2+ (NEGATIVE); UROBILINOGEN,URINE NORMAL (NORMAL)
[2017-01-08 00:27] LABS: APPEARANCE,URINE CLEAR (CLEAR); BACTERIA,URINE NEGATIVE /HPF (NEGATIVE); COLOR,URINE YELLOW (YELLOW); RBC,URINE 0-3 /HPF (NEGATIVE); SQUAMOUS EPITHELIAL CELL,UR FEW /HPF (NEGATIVE)
[2017-01-08 00:43] VITALS: BP 120/80
== END 2017-01-08 00:35 | disposition home or self-care (01) ==
LOC: ER 22:38
DX: M25.551 Pain in right hip (principal); Z96.649 Presence of unspecified artificial hip joint
CPT/HCPCS: 36415; 80053; 81001; 85025; 96365; 96374; 96375; 99282; 99283; A4222; J0696; J2300

== ENCOUNTER → 2017-01-28 | Outpatient (CLI) | payer OTHER ==
[2017-01-08 00:43] VITALS: BP 120/80
--- NOTE | 2017-01-28 09:48 | RAD ---
Examination: Bilateral hips History: Left hip replacement Comparison reference 01/04/2017 Findings: A frontal view of the pelvis is supplemented bilateral views of each hip. Left hip arthropl asty components are again noted, related anatomically. There is no evidence for interval displacement , infection or fracture. On the right, there is joint narrowing with marked contour deformity and fla ttening of the femoral head. Osteophyte formation is present. No acute fracture is seen. Impression: 1. Stable appearance of left NI; no interval abnormality noted. 2. Advanced osteoarthritis right hip with described findings consistent with superimposed AVN/osteone crosis. Reported By:
== END | disposition home or self-care (01) | DRG 554 ==
LOC: RAD 09:12
PROVIDERS: ATTEND Orthopaedic Surgery
DX: M87.051 Idiopathic aseptic necrosis of right femur (principal); M87.052 Idiopathic aseptic necrosis of left femur; M16.11 Unilateral primary osteoarthritis, right hip
CPT/HCPCS: 73521

== ENCOUNTER 2017-02-10 19:52 | Emergency (ER) | payer OTHER ==
[2017-02-10 20:04] VITALS: BP 127/79; BMI 17.9
--- NOTE | 2017-02-10 20:37 | DR.GENAD ---
HPI - PCP Primary Care Physician: NFD - HPI Comment HPI Comment: GETTING WORSE. PATIENT IS RUNNING FEVER. COUGH IS PRODUCTIVE WITH YELLOW SPUTUM. HAVE PRESSURE OVER THE SINUSES. ALSO HAVE HEADACHE. - Complaint/Symptoms Chief Complaint Doctors Comments: COUGH, COLD CONGESTION AND WHEEZING TIMES ONE WEEK. Chief Complaint:: SICK X 7 DAYS; WHEEZING, COUGHING, SORE THROAT, NAUSEATED Self Treatment fo Chief Complaint: MUCINEX, AMOXICILLIN, TYLENOL - Nurses notes reviewed Nurses Notes Review: Yes - Source History Provided: Patient - Mode of Arrival Mode of Arrival: Ambulatory - Timing Onset of Chief Complaint: 02/03/17 Came on: Suddenly - Duration Duration: Constant Duration: Days - Severity Severity: Moderate PMH - PMH Past Medical History: No Past Surgical History: Yes Surgical History: Ortho Surgery Past Surgical History Comment: LEFT HIP REPLACEMENT X 5 WEEKS AGO - Family History History of Family Medical Conditions: No Family Medical History: Hypertension - Social History Alcohol Use: None Do you use any recreational Drugs:: No Lives With: Spouse Lives Where: Home - infectious screening In the last 2 months have you had wt loss of >10#?: NO Have you had fever, night sweats or hemotysis?: No Have you traveled outside the country in the last 6 months?: No Isolation: Standard ROS - Review of Systems Constitutional: Fever, Weakness, Fatigue. negative: Chills Eyes: negative: Eye Pain, Discharge ENTM: Nose Discharge, Nose Congestion, Throat Pain. negative: Ear Pain Respiratoy: Productive Cough, Short of Breath, Wheezing. negative: Hemoptysis Cardiovascular: Chest Pain Gastrointestinal/Abdominal: No Symptoms Reported Genitourinary: No Symptoms Reported Neurological: Headache, Weakness, Dizziness Musculoskeletal: Muscle Pain Integumentary: No Symptoms Reported Hematologic/Lymphatic: No Symptoms Reported Endocrine: No Symptoms Reported All Other Systems: Reviewed and Negative PE - Vital Signs Vitals: Temperature 99.0 F Pulse Rate 112 Respiratory Rate 22 Blood Pressure [Right Arm] 120/80 Blood Pressure [Left Arm] 118/64 Blood Pressure 127/79 O2 Sat by Pulse Oximetry 99 - General Limitations: No Limitations General Appearance: Alert - Head Head Exam: Normal Inspection - Eyes Eye exam: Normal Appearance - ENT ENT Exam: Normal External Ear Exam External Ear Exam: Normal External Inspection TM/Canal Exam: Bilateral Bulging Nose Exam: Sinus Tenderness Mouth Exam: Normal Inspection Throat Exam: Tonsillar Erythema - Neck Neck Exam: Trachea Midline - Chest Chest Inspection: Symmetric Chest Wall Rise - Respiratory Respiratory Exam: Normal Lung Sounds Bilat Respiratory Exam: Bilateral Wheezing, Bilateral Rhonchi, Lower Wheezing, Lower Rhonchi - Cardiovascular Cardiovascular Exam: Regular Rate, Normal Rhythm, Normal Heart Sounds - Abdominal Exam Abdominal Exam: Normal Bowel Sounds, Soft. negative: Tenderness - Extremities Extremities Exam: Normal Inspection - Back Back Exam: Normal Inspection - Neurologic Neurological Exam: Alert, Oriented X3 - Psychiatric Psychiatric Exam: Normal Affect, Normal Mood - Skin Skin Exam: Normal Color MDM - Differential Diagnosis Differential Diagnosis: PNEUMONIA. BRONCHITIS, SINUSITIS, STREP THROAT Course - Treatment Treatment: SEE ORDERS. - Education/Counseling Education/Counseling: Patient, Education Educated On: Diagnosis, Needs for Follow Up ROR - Labs Reviewed Laboratory Results Reviewed?: Yes Laboratory: Streptococcus Screen Negative (NEGATIVE) 02/10/17 20:36 - XRAY XRAY Interpreted by: Radiologist XRAY Findings: REPORT DISCUSS WITH PATIENT. - Diagnosis Discharge Problem: Bronchitis - Discharge Plan Condition: Stable Prescriptions: Amoxicillin [Amoxil 875 mg] 875 mg PO Q12H #20 tab Benzonatate [TESSALON PERLES *] 200 mg PO TID PRN #30 cap PRN Reason: Cough - Follow ups/Referrals Follow ups/Referrals: NFD,None [Primary Care Provider] - 3 days - Instructions Instructions: Acute Bronchitis, [id number] Additional Instructions: RETURN TO ED IF WORSE.
--- NOTE | 2017-02-10 21:29 | RAD ---
HISTORY: Cough, chest pain, and wheezing. Study: PA and lateral chest. Comparison: Chest x-ray dated December 24, 2016. Findings: The trachea is midline. The cardiac silhouette is unremarkable. No obvious focal consolidation, ple ural effusion, or pneumothorax.. The bony thorax is unremarkable. IMPRESSION: No acute cardiopulmonary disease. Reported By:
[2017-02-10] MEDS ORDERED: AMOXIL CAP 500 MG PO ONE ×2 (21:37→21:38)
[2017-02-10] MEDS ORDERED: TESSALON PERLES PO ONE ×2 (21:38)
== END 2017-02-10 21:50 | disposition home or self-care (01) ==
LOC: ER 20:05
DX: J40 Bronchitis, not specified as acute or chronic (principal)
CPT/HCPCS: 71046; 87070; 87880; 99282

== ENCOUNTER 2017-09-27 08:01 | Inpatient (IN) ==
[2017-09-27] MEDS ORDERED: ANCEF 1 GRAM IV PREMIX* 1 G/50 ML BAG IV ONE (08:13)
[2017-09-27] MEDS ORDERED: D5 LR 1000 ML 1,000 ML IV ONE (08:13)
[2017-09-27 08:30] VITALS: BMI 19.2
[2017-09-27] MEDS ORDERED: NEOSTIGMINE INJ ONE (08:57)
[2017-09-27] MEDS ORDERED: NORCURON INJ 10 MG VIAL ONE (08:57)
[2017-09-27] MEDS ORDERED: DIPRIVAN VIAL ONE (08:57)
[2017-09-27] MEDS ORDERED: ROBINUL ONE (08:57)
[2017-09-27] MEDS ORDERED: VERSED ONE (08:57)
[2017-09-27] MEDS ORDERED: QUELICIN (OR ANECTINE) ONE (08:57)
[2017-09-27] MEDS ORDERED: DILAUDID INJ ONE (09:17)
[2017-09-27] MEDS ORDERED: MARCAINE 0.5% ONE (09:18)
[2017-09-27] MEDS ORDERED: FENTANYL INJ 250 mcg ONE (09:18)
[2017-09-27] MEDS ORDERED: XYLOCAINE 1 % (PLAIN) ONE (09:24)
[2017-09-27] MEDS ORDERED: MARCAINE 0.5% 52 ML, NS 1000 ML 348 ML IJ PRN ×2 (10:36)
[2017-09-27] MEDS ORDERED: Q PUMP EPI PRN (10:36)
[2017-09-27] MEDS ORDERED: LR 1000 ML IV 1,000 ML IV ONE (11:22)
[2017-09-27] MEDS ORDERED: NS IRRIGATION 1000 ML 1,000 ML with BACITRACIN VIAL 50,000 UNIT, POLYMYXIN B SULFATE 50... IR NR ×3 (12:00)
[2017-09-27] MEDS ORDERED: NS IRRIGATION 3000 ML 3,000 ML with BACITRACIN VIAL 50,000 UNIT, POLYMYXIN B SULFATE 50... IR NR ×6 (12:00)
[2017-09-27] MEDS ORDERED: ZOFRAN INJ 4 MG VIAL IVP PRN (12:37)
[2017-09-27] MEDS ORDERED: DILAUDID INJ IVP PRN (12:37)
[2017-09-27] MEDS ORDERED: BENADRYL INJ 50 MG VIAL IVP PRN (12:37)
[2017-09-27] MEDS ORDERED: PHENERGAN INJ 25 MG IVP PRN (12:37)
[2017-09-27] MEDS ORDERED: REGLAN INJ 10 MG VIAL IVP PRN (12:37)
--- NOTE | 2017-09-27 13:11 | RAD ---
History: Postop right total hip prosthesis Study: AP pelvis Comparison: August 26 Findings: There is an unchanged left total hip joint prosthesis. There is a new right total hip prost hesis. There are surgical anand laterally. The prosthesis is in good position overall in this AP pr ojection. Impression: Satisfactory AP appearance of right total hip joint prosthesis postop Reported By:
[2017-09-27] MEDS ORDERED: SUPRANE IN ONE (13:31)
[2017-09-27] MEDS: MORPHINE SULFATE PCA 30 MG IV PRN (15:02)
[2017-09-27] MEDS: D5 1/2 NS 1000 ML 1,000 ML IV SCH (16:31)
[2017-09-27] MEDS ORDERED: LOVENOX INJ 30 MG SYR SC SCH (21:00)
[2017-09-28] MEDS: MORPHINE SULFATE PCA 30 MG IV PRN ×2 (01:19→07:25)
[2017-09-28] MEDS: D5 1/2 NS 1000 ML 1,000 ML IV SCH ×2 (02:26→15:18)
[2017-09-28 05:20] LABS: BASOPHILS % (AUTO) 0.3 % (0.2-1.0); EOSINOPHILS % (AUTO) 0.4 % (0.9-2.9); HEMATOCRIT 30.2 % (42.0-54.0); HEMOGLOBIN 10.1 g/dL (13.5-18.0); LYMPHOCYTES # (AUTO) 1.2 X10^3/uL (1.3-2.9); LYMPHOCYTES % (AUTO) 17.5 % (21.0-51.0); MEAN CORPUSCULAR HEMOGLOBIN 28.7 pg (27.0-34.0); MEAN CORPUSCULAR HGB CONC 33.5 g/dL (33.0-35.0); MEAN CORPUSCULAR VOLUME 85.8 fL (80.0-100.0); MEAN PLATELET VOLUME 10.1 fL (7.4-11.0); MONOCYTES # (AUTO) 0.8 x10^3/uL (0.3-0.8); MONOCYTES % (AUTO) 11.4 % (0.0-13.0); NEUTROPHILS % (AUTO) 70.4 % (42.0-75.0); PLATELET COUNT 180 X10^3/uL (150.0-450.0); RED BLOOD COUNT 3.52 X10^6/uL (4.7-6.0); RED CELL DISTRIBUTION WIDTH 16.5 % (11.6-16.5); WHITE BLOOD COUNT 7.1 X10^3/uL (3.6-10.0)
[2017-09-28 05:23] LABS: BLOOD UREA NITROGEN 8 mg/dL (7-18); CARBON DIOXIDE 32.1 mmol/L (21-32); CHLORIDE 103 mmol/L (98-107); COR NA(FOR HYPERGLY) 140 mmol/L (136-145); CREATININE 0.69 mg/dL (0.70-1.30); SODIUM 139 mmol/L (136-145); eGFR NON BLACK RACES > 60 (>60)
--- NOTE | 2017-09-28 10:19 | PCM.PROG ---
Progress Note - Progress Note for Day of Date of Exam: 09/28/17 - Subjective Subjective: IS DAY 1 STATUS POST RIGHT HIP REPLACEMENT. TODAY, HE IS ALERT AND ORIENTED, SITTING UP IN CHAIR ON MORNING ROUNDS. HE COMPLAINS OF MILD PAIN TO THE RIGHT HIP. ON EXAMINATION, HEART IS REGULAR IN RATE AND RHYTHM. BILATERAL LUNGS ARE NOTED TO BE CLEAR TO AUSCULTATION. ABDOMEN IS FLAT, SOFT, AND NON-TENDER WITH NORMAL BOWEL SOUNDS NOTED IN ALL QUADRANTS. THERE IS A SURGICAL DRESSING NOTED TO THE RIGHT HIP. DRESSING IS DRY AND INTACT WITH NO SIGNS OR SYMPTOMS OF INFECTION NOTED. HIS VITALS THIS MORNING ARE 98.6-111-20-99 %-139/78. LABS WERE OBTAINED. ABNORMAL LAB VALUES INCLUDE THE FOLLOWING: RBC 3.52, HGB 10.1, HCT 30.2, CARBON DIOXIDE 32.1, CREATININE 0.69, GLUCOSE 127, CALCIUM 8.0. TODAY, WE WILL CONTINUE WITH PHYSICAL THERAPY AND PAIN MANAGEMENT. OTHERWISE, WE WILL FOLLOW UP WITH AM LABS AND CONTINUE TO MONITOR. - Past Medical Family Social History Past Med/Fam/Surg Hx: No changes since H&P Allergies: Allergies No Known Drug Allergies Allergy (Verified 01/08/17 00:04) - Review of Systems ROS: No change since H&P - Vital Signs and I&O's Vital Signs: Temperature 98.6 F Pulse Rate [Left Radial] 111 Pulse Rate 62 Respiratory Rate 20 Blood Pressure [Right Arm] 139/78 Blood Pressure [Left Arm] 123/66 Blood Pressure 132/71 O2 Sat by Pulse Oximetry 99 Intake and Output: Intake & Output 09/25/17 09/26/17 09/27/17 09/28/17 11:59 11:59 11:59 11:59 Intake Total 7332 / 7332 Output Total 7125 / 7125 Balance 207 / 207 - Physical Exam Oriented: Normal Eyes: Normal Ear: Normal Nose: Normal Throat: Normal Respiratory: Normal Cardiovascular: Normal : Normal Auscultation: Bowel Sounds: Normal Palpation: Normal Tenderness: Normal Skin: Wound (RIGHT HIP SURGICAL WOUND ) Musculoskeletal: Right, Hip, Pelvis, Tender Psychiatric: Normal Mood Description: Calm Speech Pattern: Clear, Appropriate - Laboratory and Diagnostics Result Diagrams: 09/28/17 04:42 09/28/17 04:42 Labs: Laboratory WBC 7.1 X10^3/uL (3.6-10.0) 09/28/17 04:42 RBC 3.52 X10^6/uL (4.7-6.0) L 09/28/17 04:42 Hgb 10.1 g/dL (13.5-18.0) L 09/28/17 04:42 Hct 30.2 % (42.0-54.0) L 09/28/17 04:42 MCV 85.8 fL (80.0-100.0) 09/28/17 04:42 MCH 28.7 pg (27.0-34.0) 09/28/17 04:42 MCHC 33.5 g/dL (33.0-35.0) 09/28/17 04:42 RDW 16.5 % (11.6-16.5) 09/28/17 04:42 Plt Count 180 X10^3/uL (150.0-450.0) 09/28/17 04:42 MPV 10.1 fL (7.4-11.0) 09/28/17 04:42 Neut % (Auto) 70.4 % (42.0-75.0) 09/28/17 04:42 Lymph % (Auto) 17.5 % (21.0-51.0) L 09/28/17 04:42 [place] % (Auto) 11.4 % (0.0-13.0) 09/28/17 04:42 Eos % (Auto) 0.4 % (0.9-2.9) L 09/28/17 04:42 Baso % (Auto) 0.3 % (0.2-1.0) 09/28/17 04:42 Neut # (Auto) 5.0 x10^3/uL (2.2-4.8) H 09/28/17 04:42 Lymph # (Auto) 1.2 X10^3/uL (1.3-2.9) L 09/28/17 04:42 [place] # (Auto) 0.8 x10^3/uL (0.3-0.8) 09/28/17 04:42 Eos # (Auto) 0.0 x10^3/uL (0.0-0.2) 09/28/17 04:42 Baso # (Auto) 0.0 X10^3/uL (0.0-0.1) 09/28/17 04:42 Absolute Nucleated RBC 0.0 /100WBC 09/28/17 04:42 Sodium 139 mmol/L (136-145) 09/28/17 04:42 Corrected Sodium 140 mmol/L (136-145) 09/28/17 04:42 Potassium 3.7 mmol/L (3.5-5.1) 09/28/17 04:42 Chloride 103 mmol/L (98-107) 09/28/17 04:42 Carbon Dioxide 32.1 mmol/L (21-32) H 09/28/17 04:42 BUN 8 mg/dL (7-18) 09/28/17 04:42 Creatinine 0.69 mg/dL (0.70-1.30) L 09/28/17 04:42 Est GFR (MDRD) Af Amer > 60 (>60) 09/28/17 04:42 Est GFR (MDRD) Non-Af > 60 (>60) 09/28/17 04:42 Glucose 127 mg/dL (65-99) H 09/28/17 04:42 Calcium 8.0 mg/dL (8.5-10.1) L 09/28/17 04:42 - Plan (1) Status post right hip replacement Status: Acute Plan: PHYSICAL THERAPY, PAIN MANAGMENT, DRESSING CHANGES, CONTINUE TO MONITOR
[2017-09-28] MEDS ORDERED: PERCOCET TAB 5/325 MG PO PRN (11:50)
[2017-09-28] MEDS ORDERED: MOTRIN TAB 800 MG PO PRN (11:52)
[2017-09-28] MEDS ORDERED: MORPHINE SULFATE INJ 2 MG INJ IVP PRN (12:22)
[2017-09-28] MEDS: NEURONTIN CAP 100 MG PO SCH ×2 (13:10→21:44)
[2017-09-28] MEDS: PERCOCET TAB 5/325 MG PO PRN ×3 (13:10→21:44)
[2017-09-28] MEDS: LOVENOX INJ 30 MG SYR SC SCH (21:43)
[2017-09-29] MEDS: BENADRYL CAP/TAB 25 MG PO PRN ×2 (02:00→08:40)
[2017-09-29] MEDS: PERCOCET TAB 5/325 MG PO PRN ×3 (02:58→12:16)
[2017-09-29 05:23] LABS: BASOPHILS % (AUTO) 0.2 % (0.2-1.0); BLOOD UREA NITROGEN 10 mg/dL (7-18); CALCIUM 8.2 mg/dL (8.5-10.1); CARBON DIOXIDE 32.5 mmol/L (21-32); CHLORIDE 101 mmol/L (98-107); COR NA(FOR HYPERGLY) 137 mmol/L (136-145); CREATININE 0.59 mg/dL (0.70-1.30); EOSINOPHILS % (AUTO) 0.2 % (0.9-2.9); HEMATOCRIT 29.5 % (42.0-54.0); HEMOGLOBIN 9.9 g/dL (13.5-18.0); LYMPHOCYTES # (AUTO) 1.6 X10^3/uL (1.3-2.9); LYMPHOCYTES % (AUTO) 13.9 % (21.0-51.0); MEAN CORPUSCULAR HEMOGLOBIN 28.9 pg (27.0-34.0); MEAN CORPUSCULAR HGB CONC 33.5 g/dL (33.0-35.0); MEAN CORPUSCULAR VOLUME 86.3 fL (80.0-100.0); MEAN PLATELET VOLUME 9.9 fL (7.4-11.0); MONOCYTES # (AUTO) 1.2 x10^3/uL (0.3-0.8); NEUTROPHILS # (AUTO) 8.4 x10^3/uL (2.2-4.8); NEUTROPHILS % (AUTO) 74.7 % (42.0-75.0); PLATELET COUNT 169 X10^3/uL (150.0-450.0); RED BLOOD COUNT 3.42 X10^6/uL (4.7-6.0); RED CELL DISTRIBUTION WIDTH 16.1 % (11.6-16.5); SODIUM 137 mmol/L (136-145); WHITE BLOOD COUNT 11.3 X10^3/uL (3.6-10.0); eGFR NON BLACK RACES > 60 (>60)
[2017-09-29] MEDS: NEURONTIN CAP 100 MG PO SCH (05:38)
[2017-09-29] MEDS: D5 1/2 NS 1000 ML 1,000 ML IV SCH (05:40)
[2017-09-29] MEDS ORDERED: K-LYTE EFFERVESCENT PO ONE (05:58)
[2017-09-29] MEDS: LOVENOX INJ 30 MG SYR SC SCH (08:46)
[2017-09-29] MEDS ORDERED: LOVENOX INJ 30 MG SYR SC SCH (09:00)
[2017-09-29 09:26] VITALS: BP 137/56
--- NOTE | 2017-10-07 14:19 | OR.GENERIC ---
Post-Op Note Generic - Post-Op Note Operative Report: PREOPERATIVE DIAGNOSIS: RIGHT hip degenerative arthritis, AVN POSTOPERATIVE DIAGNOSIS: RIGHT hip degenerative arthritis, AVN PROCEDURE PERFORMED: RIGHT total hip arthroplasty DATE OF SURGERY- 09/27/17 ANESTHESIA: General. BLOOD LOSS: 300 cc. The patient was positioned with the RIGHT hip exposed on the pegboard. IMPLANT SPECIFICATION: Bruce Accloade femur 3 ADM 52 mm acetabular shell cluster, 28 mm ceramic head, with 48 mm ADM insert GROSS INTRAOPERATIVE FINDINGS: Severe degenerative changes within the femoral head as well as the acetabulum. complete loss of articular cartilage. HISTORY: This is a 36-year-old male with a history of RIGHT hip degenerative osteoarthritis and AVN. Because of the increased amount of pain as well as severe effect on his activities of daily living and uncontrollable pain with narcotic medication, the patient has elected to undergo the above-named procedure. All risks as well complications were discussed with the patient including but not limited to infection, scar, dislocation, need for further surgery, risk of anesthesia, deep vein thrombosis, and implant failure. The patient understood all these risks and was willing to continue further on with the procedure. PROCEDURE:. Patient was brought to the operating room. Spinal epidural was done. he got appropriate antibiotic. Bess catheter was inserted. he was positioned with peg board in a right lateral position. An axillary roll was placed. All bony prominences were well padded. At this time, the left hip and left lower extremity was then prepped and draped in the usual sterile fashion for this procedure. At this time, a posterior approach was then performed. A curvilinear incision placed over the posterior half of trochanter was placed. Dissection carried down through the subcutaneous tissue to expose the TFL and the distal part of the incision. Incision made in the TFL and The G max fibers split along. Charnley retractor applied. Fat pad was elevated with the Ray- Sage exposing the short external rotators. Inferior and superior sutures with heavy sutures placed in the rotators and the capsule. The short rotators with capsule were taken down with cautery to expose the hip. The hip was dislocated with flexion adduction and internal rotation. An neck osteotomy was completed with an oscillating saw. The femoral head was then removed. The leg was flexed and abducted and rotated 90 to prepare the femur. A Mclaughlin retractor was used to retract the tensor fascia neeru and femoral elevator was used to elevate the femur for better exposure and at this time, we began working on the femur. A rongeur was used to lateralize over the greater trochanter. A Box osteotome was used to remove the cancellous portion of the femoral neck. A Charnley awl was then used to cannulate through the proximal femoral canal. A power reamer was then used to ream the lateral aspect of the greater trochanter in order to provide maximal lateralization and prevent varus implantation of our stem. At this time, we began broaching. We started with a size #0 and progressively worked up to a size #3 mm broach. A calcar reamer was then placed and the calcar was reamed smoothly.. The acetabulum was exposed after an anterior capsulotomy was done. Retractors were placed anteriorly posteriorly and inferiorly. A long-handle knife was used to cut through the remainder of the capsule and remove the glenoid labrum around the rim of the acetabulum. With better exposure of the acetabulum, we started reaming the acetabulum. We started with a size #40 and progressively reamed to a size #52. At the size #52 mm reamer, we obtained excellent bony bleeding with good remainder of bone stalk both anteriorly and posteriorly as well as superiorly within the acetabulum. A size 52 mm cup was then implanted with excellent approaches approximately 45 degrees of abduction and 10 to 15 degrees of anteversion dialed in. 3 screws were the placed within the superior table for better approaches securing the acetabular cup. At this time, a plastic liner was then inserted for protection. The ADM complement was assembled on the back table. The 28 mm zero neck length cobalt-chrome femoral head was then impacted in place and the Monge taper assured that this was well fixed . A standard neck as well as a 28 mm plastic head was then placed and a trial reduction was then performed. Once this was performed, the hip was taken to range of motion with external rotation, longitudinal traction as well as flexion and revealed good stability with no impingement or dislocation. At this time, we removed 2 mm broach and proceeded with implanting our polyethylene liner within the acetabulum. This was impacted and placed and checked to assure that it was well seated with no loosening. We copiously irrigated within the canal and then suctioned it dry. At this time, a size 3 porous proximal collared stem, a femoral component was then impacted in place Next, the hip was then reduced within the acetabulum and again we checked range of motion as well as ligamentous stability with gentle traction, external rotation, as well as hip flexion. We were satisfied with components as well as the alignment of the components. Copious irrigation was then used to irrigate the wound. #1 Ethibond was then used to approximate the hip capsule. #1 Ethibond in interrupted fashion was used to approximate the vastus lateralis as well as the gluteus medius attachment over the partial gluteus medius attachment which was resected off the greater trochanter. Next, a #1 Ethibond was then used to approximate the tensor fascia neeru with [id number] closure. A tight closure was performed. Since the patient did have a lot of subcutaneous fat, multiple #2-0 Vicryl sutures were then used to approximate the bed space and then #2-0 Vicryl for the subcutaneous skin. Chantale were then used for skin closure. The patients hip was then cleansed. Sterile dressings consisting of Adaptic, 4 x 4, ABDs, and foam tape were then placed. After the dressing was applied, the patient was extubated safely and transferred to recovery in stable condition. Prognosis is good.
--- NOTE | 2017-11-27 21:41 | DR.CARTERD ---
- Discharge Summary for: Discharge Summary for Date of:: 09/29/17 - Admission Date Date of Admission: 09/27/17 - Admission Diagnoses Admission Diagnosis: (1) Status post right hip replacement (2) Right hip OA (3) Right hip pain - Discharge Date Discharge Date: 09/29/17 - Discharge Diagnoses Discharge Diagnosis: (1) Status post right hip replacement (2) Right hip OA (3) Right hip pain - Hospital Course Hospital Course: Mr. Zhang presented to the [facility] for a right total hip replacement. The patient was a 37-year-old male with bilateral avascular necrosis. The patient had left total hip arthroplasty done in the past. The patient had returned to Dr. Anderson's office with increasing pain in the right hip. The patients right hip was not salvageable. 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 There was deformity of the head. There was significant osteoarthritis of the right hip acetabular side. The left total hip arthroplasty had worked really well for him. The patient requested the same surgery on the right side. The patient has significant osteoarthritis due to avascular necrosis of the right hip. Patient taken to OR for surgery per Dr. Anderson. Medical HX: Arthritis, Osteoarthritis, Joint Replacement. Abnormal Labs 09/23/17: RBC 4.34, HGB 12.5, HCT 37.8, Potassium 3.3, AST 40, Total Protein 8.4, Globulin 4.9, A/G ratio 0.7. Pelvis X-Ray: There is an unchanged left total hip joint prosthesis. There is a new right total hip prosthesis. T here are surgical anand laterally. The prosthesis is in good position overall in this AP projection. Patient tolerated procedure well. We were consulted for medical management. Patient was doing well on day two. Physical therapy was working with patient. On day three, patient continued to do well. Dressing was dry and intact. Physical therapy was going well and patient was tolerating well. Dr. Anderson released patient for discharge. Vital signs stable. Labs wnl. We planned for discharge. Instructions for medications and follow up were discussed with patient and family, both voiced understanding. Patient discharged home in stable condition with family. - Discharge Medications Discharge Medications: Home Medication List cephalexin [Keflex] 500 mg PO TID #30 cap 09/29/17 [Rx] enoxaparin [Lovenox] 30 mg SUBCUT Q12H #19 ml 09/29/17 [Rx] gabapentin 100 mg PO TID #90 cap 09/29/17 [Rx] hydrocodone-acetaminophen [Gurley] 1 - 2 tab PO Q4-6H PRN #30 tab 09/29/17 [Rx] tramadol [Ultram] 50 mg PO BID #60 tab 09/29/17 [Rx] Prescriptions: cephalexin [Keflex] Bertram Couch enoxaparin [Lovenox] Bertram Couch gabapentin Bertram Couch hydrocodone-acetaminophen [Gurley] CLAUDIA ANDERSON tramadol [Ultram] Bertram Couch - Discharge Disposition Discharge Disposition: Patient is to follow up with Dr. Anderson in one week.
== END 2017-09-29 12:18 | disposition home health service (06) | DRG 470 ==
LOC: MED/SURG 08:01 → ICU 14:15 → MED/SURG 17:49
PROVIDERS: ADMIT Orthopaedic Surgery; ATTEND Internal Medicine
DX: Z96.642 Presence of left artificial hip joint; M16.11 Unilateral primary osteoarthritis, right hip; R26.89 Other abnormalities of gait and mobility; M87.851 Other osteonecrosis, right femur; I10 Essential (primary) hypertension
CPT/HCPCS: 36415; 62326; 72170; 80048; 84132; 85025; 94760; 97110; 97116; 97162; 97166; 97530; 97535; A4216; A4222; S0020; J0330; J0690; J1170; J1650; J2250; J2270; J2271; J2704; J2710; J3010; J3490; J7030; J7120; J7121; J8499; S5010